=== PATIENT | female | born 1950 | race Caucasian/White ===

== ENCOUNTER 2022-06-05 19:04 | Inpatient (IN) | payer MEDICARE, OTHER ==
[~2022-06-05] VITALS: Ht 154.9 cm; Wt 78.9 kg
[2022-06-05] MEDS ORDERED: MAGN400O6 PO (19:39)
[2022-06-05] MEDS ORDERED: VOLTAREN TOP (19:39)
[2022-06-05] MEDS ORDERED: PIOG30TA10 PO (19:39)
[2022-06-05] MEDS ORDERED: NA P133E RC (19:39)
[2022-06-05] MEDS ORDERED: BISA10SU61 RC (19:39)
[2022-06-05] MEDS ORDERED: HYDR-894 PO (19:39)
[2022-06-05] MEDS ORDERED: BUSP15TA3 PO (19:39)
[2022-06-05] MEDS ORDERED: PANT20TA2 PO (19:39)
[2022-06-05] MEDS ORDERED: GABA-532 PO (19:39)
[2022-06-05] MEDS ORDERED: DULO20CA PO (19:39)
[2022-06-05] MEDS ORDERED: FURO-152 PO (19:39)
[2022-06-05] MEDS ORDERED: ASCO-375 PO (19:39)
[2022-06-05] MEDS ORDERED: QUET25TA PO (19:39)
[2022-06-05] MEDS ORDERED: GUAI100S34 PO (19:39)
[2022-06-05] MEDS ORDERED: LIDO30AD10 TD (19:39)
[2022-06-05] MEDS ORDERED: ACET-2154 PO (19:39)
[2022-06-05] MEDS ORDERED: IPRA3AMP23 IH (19:39)
[2022-06-05] MEDS ORDERED: HYDR-3972 PO (19:39)
[2022-06-05] MEDS ORDERED: MULT-594 PO (19:39)
[2022-06-05] MEDS ORDERED: AMLO10TA59 PO (19:39)
--- NOTE | 2022-06-05 20:15 | NUR ---
Dr. Lyman at bedside for MSE.
[2022-06-05 20:40] LABS: HEMATOCRIT 32.4 % (31.2-41.9); MEAN CORPUSCULAR HEMOGLOBIN 25.1 uug (24.7-32.8); MEAN CORPUSCULAR VOLUME 81.7 fL (75.5-95.3); PLATELET COUNT (AUTO) 317 K/uL (179-408)
[2022-06-05 21:24] LABS: CARBON DIOXIDE 26 mmol/L (21-32); CHLORIDE 107 mmol/L (98-107); CREATININE 1.7 mg/dL (0.6-1.3); GLUCOSE 175 mg/dL (74-106); POTASSIUM 4.8 mmol/L (3.5-5.1); UREA NITROGEN, BLOOD 24 mg/dL (7-18)
[2022-06-05 21:38] LABS: ALANINE AMINOTRANSFERASE < 6 U/L (14-59); ALKALINE PHOSPHATASE 98 U/L (50-136); ASPARTATE AMINOTRANSFERASE 14 U/L (15-37); BILIRUBIN,DIRECT 0.2 mg/dL (0.0-0.2); BILIRUBIN,TOTAL 0.4 mg/dL (0.2-1.0); TOTAL PROTEIN, SERUM 7.3 g/dL (6.4-8.2)
[2022-06-05 21:59] LABS: MAGNESIUM 1.9 mg/dL (1.8-2.4)
--- NOTE | 2022-06-05 23:45 | NUR ---
Accepted care of patient, resting in bed a/ox4, no s/s of any distress note at this time. Updated on plan of care, incontinet of large amount of urine, complete bed change done. Assisted into position of comfort. saline lock intact to right lower arm. obese abd, BLE edema, old scar noted to abd area and right knee. Scabbed areas noted to LLE. Placed on monitor at this time, will continue to monitor.
--- NOTE | 2022-06-05 23:55 | NUR ---
Report given to Shaila CARRION.
--- NOTE | 2022-06-06 00:13 | NUR ---
Admitting MD at bedside for exam.
--- NOTE | 2022-06-06 00:31 | NUR ---
#18fr boateng inserted as per MD Steven verbal order.
--- NOTE | 2022-06-06 01:17 | NUR ---
Patient resting, no voiced c/o pain or discomfort at this time, will continue to monitor.
[2022-06-06] MEDS ORDERED: GUAIFENESIN SUGAR FREE 100 MG/5 ML UDC PO PRN (02:15)
[2022-06-06] MEDS ORDERED: FLEET ENEMA 133 ML BOTTLE RC PRN (02:15)
[2022-06-06] MEDS ORDERED: hydrALAZINE HCL 25 MG TABLET PO PRN (02:15)
[2022-06-06] MEDS ORDERED: BISACODYL 10 MG SUPP.RECT RC PRN (02:15)
[2022-06-06] MEDS ORDERED: MAGNESIUM HYDROXIDE 30 ML LIQUID UDC PO PRN (02:15)
[2022-06-06] MEDS ORDERED: ACETAMINOPHEN 325 MG TABLET PO PRN (02:30)
[2022-06-06] MEDS ORDERED: FUROSEMIDE 40 MG/4 ML VIAL IV ONE (02:30)
[2022-06-06] MEDS ORDERED: BETHANECHOL CHLORIDE 25 MG TABLET PO PRN (02:45)
--- NOTE | 2022-06-06 03:14 | NUR ---
patient is sleeping at this time, no change in prior assessment. will continue to monitor.
[2022-06-06] MEDS ORDERED: FUROSEMIDE 40 MG/4 ML VIAL ONE (03:40)
--- NOTE | 2022-06-06 03:51 | NUR ---
Medicated as per order, requested and given another blanket.
--- NOTE | 2022-06-06 06:31 | NUR ---
2000cc emptied from boateng at this time.
[2022-06-06] MEDS ORDERED: PANTOPRAZOLE SODIUM 40 MG TABLET.DR PO ONE (06:34)
[2022-06-06] MEDS: PANTOPRAZOLE SODIUM 40 MG TABLET.DR PO SCH (06:35)
[2022-06-06 08:57] LABS: HEMATOCRIT 26.5 % (31.2-41.9); MEAN CORPUSCULAR HEMOGLOBIN 25.6 uug (24.7-32.8); MEAN CORPUSCULAR VOLUME 79.5 fL (75.5-95.3); PLATELET COUNT (AUTO) 278 K/uL (179-408)
[2022-06-06] MEDS ORDERED: LIDOCAINE 5% PATCH TD SCH (09:00)
[2022-06-06 09:01] LABS: CREATININE 1.5 mg/dL (0.6-1.3); MAGNESIUM 1.8 mg/dL (1.8-2.4); PHOSPHOROUS 4.1 mg/dL (2.5-4.9); POTASSIUM 4.1 mmol/L (3.5-5.1)
[2022-06-06] MEDS ORDERED: GABAPENTIN 300 MG CAPSULE ONE ×3 (09:25→19:17)
[2022-06-06] MEDS ORDERED: FUROSEMIDE 40 MG TABLET ONE (09:26)
[2022-06-06] MEDS ORDERED: busPIRone 5 MG TABLET ONE ×2 (09:26→19:36)
[2022-06-06] MEDS ORDERED: QUETIAPINE FUMARATE 25 MG TABLET ONE ×2 (09:27→19:17)
[2022-06-06] MEDS ORDERED: AMLODIPINE 5 MG TABLET ONE (09:27)
[2022-06-06] MEDS ORDERED: ASCORBIC ACID 500 MG TABLET ONE (09:27)
[2022-06-06] MEDS: GABAPENTIN 300 MG CAPSULE PO SCH ×3 (09:48→19:37)
[2022-06-06] MEDS: DULOXETINE 20 MG CAPSULE.DR PO SCH (09:48)
[2022-06-06] MEDS: busPIRone 5 MG TABLET PO SCH ×2 (09:48→19:37)
[2022-06-06] MEDS: FERROUS SULFATE 325 MG TABEC PO SCH (09:48)
[2022-06-06] MEDS: FUROSEMIDE 40 MG TABLET PO SCH (09:48)
[2022-06-06] MEDS: QUETIAPINE FUMARATE 25 MG TABLET PO SCH ×2 (09:49→19:37)
[2022-06-06] MEDS: ASCORBIC ACID 500 MG TABLET PO SCH (09:49)
[2022-06-06] MEDS: AMLODIPINE 10 MG TABLET PO SCH (09:49)
[2022-06-06] MEDS: MULTIVITAMINS,THERAPEUTIC TABLET PO SCH (09:49)
[2022-06-06] MEDS: LIDOCAINE 5% PATCH TD SCH (16:00)
[2022-06-07] MEDS ORDERED: LIDOCAINE 5% PATCH TD ONE (01:20)
[2022-06-07] MEDS ORDERED: HYDROCODONE/APAP 5-325MG TABLET ONE ×2 (01:21→16:08)
[2022-06-07] MEDS: HYDROCODONE/APAP 5-325MG TABLET PO PRN ×2 (01:24→16:10)
[2022-06-07] MEDS: LIDOCAINE 5% PATCH TD SCH (01:28)
--- NOTE | 2022-06-07 02:03 | NUR ---
Patient able to ambulate to the restroom with assistance
--- NOTE | 2022-06-07 02:04 | NUR ---
FC drained 2200ml
--- NOTE | 2022-06-07 03:31 | NUR ---
Per Vaughn CARRIONrn house supervisor, no TELE bed available at this time. Patient will stay in ER until bed is available. ER charting will be done.
[2022-06-07] MEDS ORDERED: PANTOPRAZOLE SODIUM 40 MG TABLET.DR PO ONE (07:01)
[2022-06-07] MEDS: PANTOPRAZOLE SODIUM 40 MG TABLET.DR PO SCH (07:03)
--- NOTE | 2022-06-07 07:07 | NUR ---
SBAR to Bonny CARRION
--- NOTE | 2022-06-07 08:10 | NUR ---
PATIENT IS SLEEPING, MOVING AROUND, VSS
[2022-06-07 09:24] LABS: CREATININE 1.5 mg/dL (0.6-1.3); MAGNESIUM 1.8 mg/dL (1.8-2.4); PHOSPHOROUS 4.1 mg/dL (2.5-4.9); POTASSIUM 4.1 mmol/L (3.5-5.1)
[2022-06-07] MEDS ORDERED: GABAPENTIN 300 MG CAPSULE ONE (09:24)
[2022-06-07] MEDS ORDERED: FUROSEMIDE 40 MG TABLET ONE (09:24)
[2022-06-07] MEDS ORDERED: QUETIAPINE FUMARATE 25 MG TABLET ONE (09:26)
[2022-06-07] MEDS: AMLODIPINE 10 MG TABLET PO SCH (09:27)
[2022-06-07] MEDS: GABAPENTIN 300 MG CAPSULE PO SCH ×3 (09:27→17:00)
[2022-06-07] MEDS: FERROUS SULFATE 325 MG TABEC PO SCH (09:27)
[2022-06-07] MEDS: FUROSEMIDE 40 MG TABLET PO SCH (09:27)
[2022-06-07] MEDS: DULOXETINE 20 MG CAPSULE.DR PO SCH (09:27)
[2022-06-07] MEDS: busPIRone 5 MG TABLET PO SCH ×2 (09:27→17:00)
[2022-06-07] MEDS: QUETIAPINE FUMARATE 25 MG TABLET PO SCH ×2 (09:28→17:00)
[2022-06-07] MEDS: MULTIVITAMINS,THERAPEUTIC TABLET PO SCH (09:28)
[2022-06-07] MEDS: ASCORBIC ACID 500 MG TABLET PO SCH (09:28)
--- NOTE | 2022-06-07 09:30 | NUR ---
PATIENT IS SITTING UP EATING C REAM OF WHEAT AND DRINKING GRAPE JUICE AND WATER. AWAITING INPATIENT BED
[2022-06-07 10:11] LABS: HEMATOCRIT 31.5 % (31.2-41.9); MEAN CORPUSCULAR HEMOGLOBIN 25.8 uug (24.7-32.8); MEAN CORPUSCULAR VOLUME 80.1 fL (75.5-95.3); PLATELET COUNT (AUTO) 300 K/uL (179-408)
[2022-06-07] MEDS ORDERED: LIDO30AD10 TD (15:46)
[2022-06-07] MEDS ORDERED: PANT40TA49 PO (15:46)
[2022-06-07] MEDS ORDERED: FERR325T28 PO (15:46)
[2022-06-07] MEDS ORDERED: BETH25TA2 PO (15:46)
[2022-06-07] MEDS ORDERED: hydrALAZINE HCL 25 MG TABLET ONE (16:08)
--- NOTE | 2022-06-07 16:11 | NUR ---
patient is awake and alert. BP high, PRN HTN med given as ordered. Patient states she has back pain "from this awful gurney". I helped her reposition and gave her [place] as ordered. She is now sitting up and eating macaroni and beef
--- NOTE | 2022-06-07 17:15 | NUR ---
BP WNL NOW. STATES PAIN HAS DIMINISHED . FLANNERY EMPIED THROUGHOUT SHIFT, URINE IS CLEAR AND LIGHT YELLOW
--- NOTE | 2022-06-07 19:26 | NUR ---
HAND OFF REPORT GIVEN TO LUCIO CARRION
[2022-06-08] VITALS: BP 148/56
--- NOTE | 2022-06-08 | NUR ---
Admitted a 72 years old female with Dx of Chronic CHF, severe SOB, UTI, ALOC 2ndary metabolic Encephalopathy. Patient AAOx4. In no apparent distress. Able to answer questions and follow directions. Denies any pain or SOB at this time. BLE with 4+ pitting edema. Routine admission care done. Plan of care initiated. Safety measure initiated and call light within reached.
--- NOTE | 2022-06-08 00:19 | NUR ---
transferred to RM [id number]
--- NOTE | 2022-06-08 04:52 | NUR ---
Patient AAOx4. In no acute distress. Robitussin plain 5ml po given for cough and effective. Cough non-productive and occasional only. Denies any pain or SOB. IV site on right FA intact and patent. Needs attended to and met. Safety measure maintained and call light within reached.
[2022-06-08 04:59] VITALS: BP 150/60
[2022-06-08] MEDS: HYDROCODONE/APAP 5-325MG TABLET PO PRN (05:24)
[2022-06-08] MEDS: PANTOPRAZOLE SODIUM 40 MG TABLET.DR PO SCH (06:01)
[2022-06-08 07:26] LABS: HEMATOCRIT 28.8 % (31.2-41.9); MEAN CORPUSCULAR HEMOGLOBIN 25.9 uug (24.7-32.8); MEAN CORPUSCULAR VOLUME 79.2 fL (75.5-95.3); PLATELET COUNT (AUTO) 285 K/uL (179-408)
[2022-06-08 07:56] LABS: CREATININE 1.6 mg/dL (0.6-1.3); MAGNESIUM 1.7 mg/dL (1.8-2.4); PHOSPHOROUS 3.9 mg/dL (2.5-4.9); POTASSIUM 3.9 mmol/L (3.5-5.1)
[2022-06-08 08:00] VITALS: BP 156/68
--- NOTE | 2022-06-08 08:00 | NUR ---
Awake, alert, oriented x 4. Denies pain. Not in distress.
[2022-06-08] MEDS ORDERED: FUROSEMIDE 40 MG/4 ML VIAL IV SCH (09:00)
[2022-06-08 09:16] VITALS: BP 156/68
[2022-06-08] MEDS: FERROUS SULFATE 325 MG TABEC PO SCH (09:16)
[2022-06-08] MEDS: QUETIAPINE FUMARATE 25 MG TABLET PO SCH (09:16)
[2022-06-08] MEDS: AMLODIPINE 10 MG TABLET PO SCH (09:16)
[2022-06-08] MEDS: GABAPENTIN 300 MG CAPSULE PO SCH (09:16)
[2022-06-08] MEDS: ASCORBIC ACID 500 MG TABLET PO SCH (09:17)
[2022-06-08] MEDS: LIDOCAINE 5% PATCH TD SCH (09:24)
[2022-06-08] MEDS: MULTIVITAMINS,THERAPEUTIC TABLET PO SCH (09:24)
[2022-06-08] MEDS: busPIRone 5 MG TABLET PO SCH (09:24)
--- NOTE | 2022-06-08 09:30 | NUR ---
PT eval done. Max assist x 2, able to stand only
[2022-06-08] MEDS: DULOXETINE 20 MG CAPSULE.DR PO SCH (09:32)
[2022-06-08] MEDS ORDERED: MAGNESIUM OXIDE 400 MG TABLET PO ONE (10:00)
--- NOTE | 2022-06-08 11:44 | NUR ---
WOUND CARE CONSULT: PT SEEN FOR RT ANTERIOR HIP WOUND WITH SURROUNDING SCARRING, PRESENT ON ADMISSION. RECOMMENDATIONS MADE FOR WOUND CARE AND SKIN PROTECTION. DISCUSSED WITH NURSING STAFF. MD IN AGREEMENT WITH PLAN OF CARE.
[2022-06-08] MEDS ORDERED: FUROSEMIDE 40 MG/4 ML VIAL IV ONE (11:45)
--- NOTE | 2022-06-08 12:34 | NUR ---
With discharge order to SNF, arranged at [facility]. Report given to Lien. Saline lock removed. Discharged per gurney/ambulance in fair condition, not in distress, afebrile.
== END 2022-06-08 13:00 | DRG 291 ==
LOC: ER 19:04 → TRANSITION 22:00 → MEDSURG3 06-07 20:52 → MED 06-07 22:15
PROVIDERS: ADMIT Internal Medicine; ATTEND Internal Medicine
DX: I13.0 Hypertensive heart and chronic kidney disease with heart failure and stage 1 through stage 4 chronic kidney disease, or unspecified chronic kidney disease (principal); I50.33 Acute on chronic diastolic (congestive) heart failure; N17.0 Acute kidney failure with tubular necrosis; N39.0 Urinary tract infection, site not specified; D50.9 Iron deficiency anemia, unspecified; Z79.4 Long term (current) use of insulin; Z87.440 Personal history of urinary (tract) infections; Z95.0 Presence of cardiac pacemaker; Z20.822 Contact with and (suspected) exposure to COVID-19; F41.9 Anxiety disorder, unspecified; F32.A Depression, unspecified; E11.22 Type 2 diabetes mellitus with diabetic chronic kidney disease; E87.5 Hyperkalemia; Z79.82 Long term (current) use of aspirin; Z79.84 Long term (current) use of oral hypoglycemic drugs; Z90.49 Acquired absence of other specified parts of digestive tract; G89.29 Other chronic pain; N18.30 Chronic kidney disease, stage 3 unspecified
CPT/HCPCS: 36415; 71045; 83550; 83735; 84100; 84484; 85025; 87040; 93005; 93307; A4663; A6209; G0378; J1940

== ENCOUNTER 2023-03-03 20:34 | Inpatient (IN) | payer MEDICARE, OTHER ==
[~2023-03-03] VITALS: Ht 152.4 cm; Wt 87.5 kg
[~2023-03-03 20:34] MED LIST: ACET-2154 PO; AMLO10TA59 PO; ASCO-375 PO; BETH25TA2 PO; BISA10SU61 RC; BUSP15TA3 PO; DULO20CA PO; FERR325T28 PO; FURO-152 PO; GABA-532 PO; GUAI100S34 PO; HYDR-3972 PO; HYDR-894 PO; IPRA3AMP23 IH; LIDO30AD10 TD; MAGN400O6 PO; MULT-594 PO; NA P133E RC; PANT40TA49 PO; PIOG30TA10 PO; QUET25TA PO; VOLTAREN TOP
[2023-03-03 21:29] LABS: BASOPHILS % (AUTO) 0.8 % (0.0-2.0); EOSINOPHILS # (AUTO) 0.2 K/uL (0.0-0.7); EOSINOPHILS % (AUTO) 3.8 % (0.0-7.0); HEMATOCRIT 34.9 % (31.2-41.9); HEMOGLOBIN 11.3 g/dL (10.9-14.3); LYMPHOCYTES # (AUTO) 1.8 K/uL (0.8-4.8); LYMPHOCYTES % (AUTO) 34.5 % (20.5-51.5); MEAN CORPUSCULAR HEMOGLOBIN 27.8 uug (24.7-32.8); MEAN CORPUSCULAR HGB CONC 32 g/dL (32.3-35.6); MEAN CORPUSCULAR VOLUME 85.7 fL (75.5-95.3); MONOCYTES # (AUTO) 0.5 K/uL (0.1-1.30); MONOCYTES % (AUTO) 10.1 % (0.0-11.0); NEUTROPHILS # (AUTO) 2.7 K/uL (1.8-8.9); NEUTROPHILS % (AUTO) 50.8 % (38.5-71.5); PLATELET COUNT (AUTO) 179 K/uL (179-408); RED BLOOD CELL COUNT(AUTO) 4.07 MIL/uL (3.63-4.92); RED CELL DISTRIBUTION WIDTH 19.4 % (12.3-17.7); WHITE BLOOD COUNT (AUTO) 5.3 K/uL (3.8-11.8)
[2023-03-03 21:38] LABS: DIFFERENTIAL COMMENT 1
[2023-03-03 21:45] LABS: CALCIUM 8.6 mg/dL (8.5-10.1); CARBON DIOXIDE 26 mmol/L (21-32); CHLORIDE 106 mmol/L (98-107); GLUCOSE 194 mg/dL (74-106); POTASSIUM 4.7 mmol/L (3.5-5.1); SODIUM SERUM 135 mmol/L (136-145); UREA NITROGEN, BLOOD 44 mg/dL (7-18)
[2023-03-03] MEDS ORDERED: HYDROCODONE/APAP 5-325MG TABLET PO ONE (21:45)
[2023-03-03 21:48] LABS: ETHANOL < 3 MG/DL (0-10)
[2023-03-03 21:58] LABS: ACETAMINOPHEN < 2.0 ug/mL (10-30); ALANINE AMINOTRANSFERASE 12 U/L (14-59); ALBUMIN 2.9 g/dL (3.4-5.0); ALKALINE PHOSPHATASE 111 U/L (50-136); ASPARTATE AMINOTRANSFERASE 17 U/L (15-37); BILIRUBIN,DIRECT 0.1 mg/dL (0.0-0.2); BILIRUBIN,TOTAL 0.4 mg/dL (0.2-1.0); TOTAL PROTEIN, SERUM 6.3 g/dL (6.4-8.2)
[2023-03-03] MEDS ORDERED: HYDROCODONE/APAP 5-325MG TABLET ONE (22:00)
[2023-03-03] MEDS ORDERED: CEFTRIAXONE 1 G in IV DEXTROSE 5% 50 ML IV ONE (22:15)
[2023-03-03] MEDS ORDERED: IV NS 1000 ML 1,000 ML IV ONE (22:15)
[2023-03-03] MEDS ORDERED: OLANZAPINE 10 MG VIAL IM ONE ×2 (22:45→22:47)
[2023-03-03 23:29] LABS: *BILIRUBIN,URIN NEGATIVE (NEGATIVE); *BLOOD, URINE 1+ (NEGATIVE); *CLARITY,URINE SLIGHTLY CLOUDY (CLEAR); *COLOR,URINE YELLOW (YELLOW); *KETONES,URINE NEGATIVE (NEGATIVE); *PROTEIN,URINE 2+ (NEGATIVE); *UROBILINOGEN,URINE 0.2 E.U./dl (NORMAL); LEUKOCYTE ESTERASE ,URINE 3+ (NEGATIVE); NITRITE, URINE POSITIVE (NEGATIVE); PH,URINE 6.5 (5.0-8.0); UGLUCOSE NEGATIVE (NEGATIVE)
[2023-03-03 23:40] LABS: *AMPHETAMINE, URINE NEGATIVE (NEGATIVE); *BARBITURATE, URINE NEGATIVE (NEGATIVE); *BENZODIAZEPINE, URINE NEGATIVE (NEGATIVE); *CANNABINOID, URINE NEGATIVE (NEGATIVE); *COCCAINE, URINE NEGATIVE (NEGATIVE); *OPIATE, URINE POSITIVE (NEGATIVE); *PHENCYCLIDINE SCREEN,URINE NEGATIVE (NEGATIVE); FENTANYL, URINE NEGATIVE (NEGATIVE)
[2023-03-04] MEDS ORDERED: CEFTRIAXONE /D5W 50ML IVPB **ER PYXIS IV ONE (00:05)
[2023-03-04 00:14] LABS: WBC,URINE 50-80 /HPF (0-3)
[2023-03-04 00:15] LABS: BACTERIA,URINE MANY /HPF (NONE SEEN); SQUAMOUS EPITHELIAL CELL,UR MANY /HPF (NONE SEEN)
[2023-03-04] MEDS ORDERED: CHOL100045 PO (00:28)
[2023-03-04] MEDS ORDERED: AMLO2.5T4 PO (00:28)
[2023-03-04] MEDS ORDERED: CLOT15CR27 TP (00:28)
[2023-03-04] MEDS ORDERED: DOCU250C14 PO (00:28)
[2023-03-04] MEDS ORDERED: norco PO (00:28)
[2023-03-04] MEDS ORDERED: aspart insulin (00:28)
[2023-03-04] MEDS ORDERED: ARIP2TAB3 PO (00:28)
[2023-03-04] MEDS ORDERED: FURO-151 PO (00:28)
[2023-03-04] MEDS ORDERED: SENN8.6T19 PO (00:28)
[2023-03-04] MEDS ORDERED: DULO30CA2 PO (00:28)
[2023-03-04] MEDS ORDERED: ASCO500C18 PO (00:28)
[2023-03-04] MEDS ORDERED: NITR0.4T SL (00:28)
[2023-03-04] MEDS ORDERED: ONDA-104 PO (00:28)
[2023-03-04] MEDS ORDERED: PANT40TA49 PO (00:28)
[2023-03-04] MEDS ORDERED: LORA0.5T48 PO (00:28)
[2023-03-04] MEDS ORDERED: DICL100G31 TP (00:28)
[2023-03-04] MEDS ORDERED: LINA5TAB PO (00:28)
[2023-03-04] MEDS ORDERED: ZINC1CAP2 PO (00:28)
[2023-03-04] MEDS ORDERED: ATOR40TA PO (00:28)
[2023-03-04] MEDS ORDERED: BUSP5TAB3 PO (00:28)
[2023-03-04] MEDS ORDERED: HYDR-501 PO (00:28)
[2023-03-04] MEDS ORDERED: ASPI81TA31 PO (00:28)
[2023-03-04] MEDS ORDERED: MELA3TAB41 PO (00:28)
[2023-03-04] MEDS ORDERED: VIT1TABL46 PO (00:28)
[2023-03-04] MEDS ORDERED: FERR-68 PO (00:28)
[2023-03-04] MEDS ORDERED: ARIPIPRAZOLE 2 MG TABLET ONE ×2 (08:50→22:50)
[2023-03-04] MEDS ORDERED: GABAPENTIN 300 MG CAPSULE ONE ×3 (08:50→18:38)
[2023-03-04] MEDS ORDERED: busPIRone 5 MG TABLET ONE (08:54)
[2023-03-04] MEDS ORDERED: ASPIRIN 81 MG TAB.CHEW ONE (08:59)
[2023-03-04] MEDS: busPIRone 5 MG TABLET PO SCH ×2 (09:01→13:00)
[2023-03-04] MEDS: ASPIRIN 81 MG TAB.CHEW PO SCH (09:01)
[2023-03-04] MEDS: GABAPENTIN 300 MG CAPSULE PO SCH ×2 (09:01→13:00)
[2023-03-04] MEDS: DULOXETINE 30 MG CAPSULE.DR PO SCH (09:01)
[2023-03-04] MEDS ORDERED: DEXTROSE 50% 50 ML DISP.SYRIN IV PRN (09:30)
[2023-03-04] MEDS ORDERED: CEFTRIAXONE 1 G VIAL IV SCH (09:30)
[2023-03-04] MEDS: BLOOD SUGAR DIAGNOSTIC 1 EACH STRIP VI SCH ×4 (09:33→21:00)
[2023-03-04] MEDS ORDERED: MORPHINE SULFATE 2 MG/1 ML DISP.SYRIN IVP PRN (10:30)
[2023-03-04] MEDS ORDERED: ACETAMINOPHEN 325 MG TABLET PO PRN (10:30)
[2023-03-04] MEDS ORDERED: ONDANSETRON 4 MG/2 ML VIAL IV PRN (10:30)
[2023-03-04] MEDS ORDERED: hydrALAZINE HCL 20 MG/1 ML VIAL IV PRN (10:30)
[2023-03-04] MEDS ORDERED: INSULIN REGULAR, HUMAN 300 UNIT/3 ML VIAL ONE ×2 (12:21→23:29)
[2023-03-04] MEDS: INSULIN REGULAR, HUMAN 300 UNIT/3 ML VIAL SQ PRN ×2 (12:24→23:32)
[2023-03-04] MEDS ORDERED: HYDROCODONE/APAP 5-325MG TABLET ONE (20:28)
[2023-03-04] MEDS: HYDROCODONE/APAP 5-325MG TABLET PO PRN (20:32)
[2023-03-04] MEDS: ATORVASTATIN 40 MG TABLET PO SCH (21:00)
[2023-03-04] MEDS: ARIPIPRAZOLE 2 MG TABLET PO SCH (21:00)
[2023-03-04] MEDS: AMLODIPINE 2.5 MG TABLET PO SCH (21:00)
[2023-03-04] MEDS ORDERED: LORAZEPAM 2 MG/1 ML VIAL ONE (21:43)
[2023-03-04] MEDS ORDERED: LORAZEPAM 2 MG/1 ML VIAL IV PRN (21:45)
[2023-03-04] MEDS ORDERED: AMLODIPINE 2.5 MG TABLET ONE (22:49)
[2023-03-04] MEDS ORDERED: ATORVASTATIN 20 MG TABLET ONE (22:50)
[2023-03-05] MEDS ORDERED: CEFTRIAXONE 1 G VIAL ONE (00:35)
[2023-03-05] MEDS ORDERED: CEFEPIME HCL 1 G VIAL ONE (02:42)
[2023-03-05] MEDS ORDERED: LORAZEPAM 0.5 MG TABLET ONE (04:34)
[2023-03-05] MEDS: LORAZEPAM 0.5 MG TABLET PO PRN ×2 (04:34→21:23)
[2023-03-05 06:12] LABS: BASOPHILS % (AUTO) 0.6 % (0.0-2.0); EOSINOPHILS # (AUTO) 0.2 K/uL (0.0-0.7); EOSINOPHILS % (AUTO) 3.7 % (0.0-7.0); HEMATOCRIT 32.2 % (31.2-41.9); HEMOGLOBIN 10.5 g/dL (10.9-14.3); LYMPHOCYTES # (AUTO) 2.1 K/uL (0.8-4.8); LYMPHOCYTES % (AUTO) 34.4 % (20.5-51.5); MEAN CORPUSCULAR HEMOGLOBIN 27.8 uug (24.7-32.8); MEAN CORPUSCULAR HGB CONC 33 g/dL (32.3-35.6); MEAN CORPUSCULAR VOLUME 85.5 fL (75.5-95.3); MONOCYTES # (AUTO) 0.6 K/uL (0.1-1.30); MONOCYTES % (AUTO) 9.2 % (0.0-11.0); NEUTROPHILS # (AUTO) 3.2 K/uL (1.8-8.9); NEUTROPHILS % (AUTO) 52.1 % (38.5-71.5); PLATELET COUNT (AUTO) 171 K/uL (179-408); RED BLOOD CELL COUNT(AUTO) 3.76 MIL/uL (3.63-4.92); RED CELL DISTRIBUTION WIDTH 19.5 % (12.3-17.7); WHITE BLOOD COUNT (AUTO) 6.1 K/uL (3.8-11.8)
[2023-03-05 06:13] LABS: DIFFERENTIAL COMMENT 1
[2023-03-05 06:42] LABS: ALBUMIN 2.5 g/dL (3.4-5.0); BILIRUBIN,TOTAL 0.4 mg/dL (0.2-1.0); CALCIUM 8.2 mg/dL (8.5-10.1); CREATININE 1.8 mg/dL (0.6-1.3); PHOSPHOROUS 3.7 mg/dL (2.5-4.9); POTASSIUM 4.9 mmol/L (3.5-5.1); TOTAL PROTEIN, SERUM 5.8 g/dL (6.4-8.2)
[2023-03-05] MEDS: BLOOD SUGAR DIAGNOSTIC 1 EACH STRIP VI SCH ×4 (06:51→21:36)
[2023-03-05 10:16] VITALS: BP 148/44; TEMP 98.4; O2SAT 97
[2023-03-05] MEDS: ASPIRIN 81 MG TAB.CHEW PO SCH (11:22)
[2023-03-05] MEDS: INSULIN REGULAR, HUMAN 300 UNIT/3 ML VIAL SQ PRN ×2 (11:28→21:40)
[2023-03-05] MEDS: HYDROCODONE/APAP 5-325MG TABLET PO PRN (15:46)
[2023-03-05 17:03] VITALS: BP 157/51; TEMP 98; O2SAT 96
[2023-03-05] MEDS: ATORVASTATIN 40 MG TABLET PO SCH (21:21)
[2023-03-05] MEDS: ARIPIPRAZOLE 2 MG TABLET PO SCH (21:21)
[2023-03-05] MEDS: AMLODIPINE 2.5 MG TABLET PO SCH (21:28)
[2023-03-05 22:15] VITALS: BP 157/52; TEMP 97.3; O2SAT 97
[2023-03-05] MEDS: CEFTRIAXONE 1 G in IV DEXTROSE 5% 50 ML IV SCH ×3 (23:36)
[2023-03-06] MEDS: HYDROCODONE/APAP 5-325MG TABLET PO PRN ×3 (03:51→17:03)
[2023-03-06 04:10] VITALS: BP 128/59; TEMP 98.5
[2023-03-06] MEDS: BLOOD SUGAR DIAGNOSTIC 1 EACH STRIP VI SCH ×4 (06:36→21:14)
[2023-03-06 08:00] VITALS: BP 119/61; TEMP 98.1; O2SAT 95
[2023-03-06] MEDS: ASPIRIN 81 MG TAB.CHEW PO SCH (08:23)
[2023-03-06] MEDS: DULOXETINE 30 MG CAPSULE.DR PO SCH ×2 (08:24→16:16)
[2023-03-06] MEDS: GABAPENTIN 300 MG CAPSULE PO SCH ×3 (08:24→16:18)
[2023-03-06] MEDS: busPIRone 5 MG TABLET PO SCH ×3 (08:24→16:16)
[2023-03-06] MEDS ORDERED: SULF1TAB48 PO (10:19)
[2023-03-06] MEDS: MUPIROCIN 2% OINT 22 GM TUBE NS SCH ×2 (11:18→21:11)
[2023-03-06] MEDS: INSULIN REGULAR, HUMAN 300 UNIT/3 ML VIAL SQ PRN ×2 (11:35→16:47)
[2023-03-06] MEDS ORDERED: ENOXAPARIN SODIUM 40 MG/0.4 ML DISP.SYRIN SQ SCH (15:00)
[2023-03-06] MEDS ORDERED: REMEDY ESSENTIAL ZINC PASTE 113 GM TP PRN (15:00)
[2023-03-06] MEDS ORDERED: ONDANSETRON 4 MG/2 ML VIAL IV PRN (15:00)
[2023-03-06] MEDS ORDERED: IV NS 1000 ML 1,000 ML IV PRN (15:00)
[2023-03-06] MEDS ORDERED: MAGNESIUM HYDROXIDE 30 ML LIQUID UDC PO PRN (15:00)
[2023-03-06] MEDS ORDERED: ACETAMINOPHEN 325 MG TABLET PO PRN (15:00)
[2023-03-06 16:00] VITALS: BP 137/71; TEMP 97.8; O2SAT 97
[2023-03-06] MEDS: SULFAMETH/TRIMETH 800/160 MG TABLET PO SCH (16:16)
[2023-03-06] MEDS: INSULIN REGULAR, HUMAN 300 UNIT/3 ML VIAL SQ SCH (16:30)
[2023-03-06] MEDS ORDERED: INSULIN ASPART 300 UNIT/3 ML CARTRIDGE SQ SCH (16:30)
[2023-03-06] MEDS ORDERED: ENOXAPARIN SODIUM 30 MG/0.3 ML DISP.SYRIN SUBCUT SCH (21:00)
[2023-03-06] MEDS ORDERED: SULFAMETH/TRIMETH 800/160 MG TABLET PO SCH (21:00)
[2023-03-06] MEDS: ARIPIPRAZOLE 2 MG TABLET PO SCH (21:11)
[2023-03-06] MEDS: ATORVASTATIN 40 MG TABLET PO SCH (21:11)
[2023-03-06 21:12] VITALS: BP 135/59; TEMP 98.2; O2SAT 98
[2023-03-06] MEDS: AMLODIPINE 2.5 MG TABLET PO SCH (21:12)
[2023-03-06] MEDS: LORAZEPAM 0.5 MG TABLET PO PRN (23:42)
[2023-03-07] MEDS: HYDROCODONE/APAP 5-325MG TABLET PO PRN ×2 (00:17→17:00)
[2023-03-07 04:50] VITALS: BP 150/74; TEMP 98.2; O2SAT 99
[2023-03-07 06:20] LABS: BASOPHILS % (AUTO) 0.7 % (0.0-2.0); EOSINOPHILS # (AUTO) 0.2 K/uL (0.0-0.7); EOSINOPHILS % (AUTO) 4.3 % (0.0-7.0); HEMATOCRIT 32.5 % (31.2-41.9); HEMOGLOBIN 10.9 g/dL (10.9-14.3); LYMPHOCYTES # (AUTO) 1.3 K/uL (0.8-4.8); LYMPHOCYTES % (AUTO) 30.5 % (20.5-51.5); MEAN CORPUSCULAR HEMOGLOBIN 28.3 uug (24.7-32.8); MEAN CORPUSCULAR HGB CONC 34 g/dL (32.3-35.6); MEAN CORPUSCULAR VOLUME 84.4 fL (75.5-95.3); MONOCYTES # (AUTO) 0.5 K/uL (0.1-1.30); MONOCYTES % (AUTO) 11.3 % (0.0-11.0); NEUTROPHILS # (AUTO) 2.2 K/uL (1.8-8.9); NEUTROPHILS % (AUTO) 53.2 % (38.5-71.5); PLATELET COUNT (AUTO) 159 K/uL (179-408); RED BLOOD CELL COUNT(AUTO) 3.84 MIL/uL (3.63-4.92); WHITE BLOOD COUNT (AUTO) 4.2 K/uL (3.8-11.8)
[2023-03-07] MEDS: BLOOD SUGAR DIAGNOSTIC 1 EACH STRIP VI SCH (06:36)
[2023-03-07 06:53] LABS: DIFFERENTIAL COMMENT 1
[2023-03-07] MEDS ORDERED: PANTOPRAZOLE SODIUM 40 MG TABLET.DR PO SCH (07:00)
[2023-03-07 07:03] LABS: ALBUMIN 2.6 g/dL (3.4-5.0); BILIRUBIN,TOTAL 0.4 mg/dL (0.2-1.0); CALCIUM 8.3 mg/dL (8.5-10.1); CREATININE 1.8 mg/dL (0.6-1.3); MAGNESIUM 1.9 mg/dL (1.8-2.4); PHOSPHOROUS 3.9 mg/dL (2.5-4.9); POTASSIUM 4.3 mmol/L (3.5-5.1); TOTAL PROTEIN, SERUM 6.1 g/dL (6.4-8.2)
[2023-03-07] MEDS: INSULIN REGULAR, HUMAN 300 UNIT/3 ML VIAL SQ SCH (08:28)
[2023-03-07] MEDS: ASPIRIN 81 MG TAB.CHEW PO SCH (08:29)
[2023-03-07] MEDS: GABAPENTIN 300 MG CAPSULE PO SCH ×3 (08:30→16:52)
[2023-03-07] MEDS: busPIRone 5 MG TABLET PO SCH ×3 (08:30→16:52)
[2023-03-07] MEDS: DULOXETINE 30 MG CAPSULE.DR PO SCH ×2 (08:30→16:52)
[2023-03-07] MEDS: MUPIROCIN 2% OINT 22 GM TUBE NS SCH (08:31)
[2023-03-07 09:00] VITALS: BP 152/65; TEMP 98.1; O2SAT 99
[2023-03-07] MEDS: SULFAMETH/TRIMETH 800/160 MG TABLET PO SCH (16:52)
[2023-03-07] MEDS ORDERED: ARIPIPRAZOLE 2 MG TABLET PO SCH (21:00)
[2023-03-07] MEDS ORDERED: ARIPIPRAZOLE 5 MG TABLET PO SCH (21:00)
== END 2023-03-07 18:00 | DRG 871 ==
LOC: ER 20:36 → TRANSITION 03-04 02:14 → MEDSURG3 03-05 09:40
PROVIDERS: ADMIT Internal Medicine; ATTEND Internal Medicine
PROC: 05H533Z Insertion of Infusion Device into Right Subclavian Vein, Percutaneous Approach (ICD-10-PCS; principal; 2023-03-06)
PROC: B546ZZA Ultrasonography of Right Subclavian Vein, Guidance (ICD-10-PCS; 2023-03-06)
DX: A41.9 Sepsis, unspecified organism (principal); E43 Unspecified severe protein-calorie malnutrition; N17.0 Acute kidney failure with tubular necrosis; N39.0 Urinary tract infection, site not specified; D68.69 Other thrombophilia; B96.20 Unspecified Escherichia coli [E. coli] as the cause of diseases classified elsewhere; D64.9 Anemia, unspecified; D69.6 Thrombocytopenia, unspecified; E11.22 Type 2 diabetes mellitus with diabetic chronic kidney disease; E78.5 Hyperlipidemia, unspecified; G89.4 Chronic pain syndrome; N18.9 Chronic kidney disease, unspecified; I12.9 Hypertensive chronic kidney disease with stage 1 through stage 4 chronic kidney disease, or unspecified chronic kidney disease; Z79.84 Long term (current) use of oral hypoglycemic drugs; Z87.440 Personal history of urinary (tract) infections; Z95.0 Presence of cardiac pacemaker; Z20.822 Contact with and (suspected) exposure to COVID-19; K21.9 Gastro-esophageal reflux disease without esophagitis; F41.9 Anxiety disorder, unspecified; F20.9 Schizophrenia, unspecified; F31.9 Bipolar disorder, unspecified; F60.3 Borderline personality disorder; M19.90 Unspecified osteoarthritis, unspecified site; E66.9 Obesity, unspecified; Z68.37 Body mass index [BMI] 37.0-37.9, adult
CPT/HCPCS: 36415; 70450; 83605; 83735; 84100; 85025; 87040; A4663; G0378; G0480; J0692; J0696; J1650; J1815; J2060; J2358; J7040

== ENCOUNTER 2023-03-19 19:44 | Inpatient (IN) | payer MEDICARE, OTHER ==
[~2023-03-19] VITALS: Ht 154.9 cm; Wt 97.1 kg
[~2023-03-19 19:44] MED LIST changes: -AMLO10TA59 PO; +AMLO2.5T4 PO; +ARIP2TAB3 PO; -ASCO-375 PO; +ASCO500C18 PO; +ASPI81TA31 PO; -BETH25TA2 PO; -BUSP15TA3 PO; +BUSP5TAB3 PO; +CHOL100045 PO; +CLOT15CR27 TP; +DICL100G31 TP; +DOCU250C14 PO; -DULO20CA PO; +DULO30CA2 PO; -FERR325T28 PO; +FURO-151 PO; -FURO-152 PO; -GUAI100S34 PO; -HYDR-3972 PO; +HYDR-501 PO; -HYDR-894 PO; -IPRA3AMP23 IH; -LIDO30AD10 TD; +LINA5TAB PO; -MAGN400O6 PO; -MULT-594 PO; -NA P133E RC; -PIOG30TA10 PO; -QUET25TA PO; +SENN8.6T19 PO; +VIT1TABL46 PO; -VOLTAREN TOP; +ZINC1CAP2 PO
[2023-03-19] MEDS ORDERED: DOXY100C5 PO (20:05)
[2023-03-19 20:12] LABS: BASOPHILS % (AUTO) 0.5 % (0.0-2.0); EOSINOPHILS # (AUTO) 0.3 K/uL (0.0-0.7); EOSINOPHILS % (AUTO) 3.6 % (0.0-7.0); HEMATOCRIT 37.3 % (31.2-41.9); HEMOGLOBIN 12.2 g/dL (10.9-14.3); LYMPHOCYTES # (AUTO) 2.2 K/uL (0.8-4.8); LYMPHOCYTES % (AUTO) 30.9 % (20.5-51.5); MEAN CORPUSCULAR HEMOGLOBIN 28.1 uug (24.7-32.8); MEAN CORPUSCULAR HGB CONC 33 g/dL (32.3-35.6); MEAN CORPUSCULAR VOLUME 86.1 fL (75.5-95.3); MONOCYTES # (AUTO) 0.8 K/uL (0.1-1.30); MONOCYTES % (AUTO) 11.3 % (0.0-11.0); NEUTROPHILS # (AUTO) 3.8 K/uL (1.8-8.9); NEUTROPHILS % (AUTO) 53.7 % (38.5-71.5); PLATELET COUNT (AUTO) 239 K/uL (179-408); RED BLOOD CELL COUNT(AUTO) 4.33 MIL/uL (3.63-4.92); RED CELL DISTRIBUTION WIDTH 18.1 % (12.3-17.7)
[2023-03-19 20:13] LABS: DIFFERENTIAL COMMENT 1
[2023-03-19 20:27] LABS: ALANINE AMINOTRANSFERASE 12 U/L (14-59); ALBUMIN 3.1 g/dL (3.4-5.0); ALKALINE PHOSPHATASE 113 U/L (50-136); ASPARTATE AMINOTRANSFERASE 13 U/L (15-37); BILIRUBIN,DIRECT 0.1 mg/dL (0.0-0.2); BILIRUBIN,TOTAL 0.4 mg/dL (0.2-1.0); CALCIUM 8.9 mg/dL (8.5-10.1); CARBON DIOXIDE 29 mmol/L (21-32); CHLORIDE 104 mmol/L (98-107); GLUCOSE 171 mg/dL (74-106); POTASSIUM 4.4 mmol/L (3.5-5.1); SODIUM SERUM 140 mmol/L (136-145); UREA NITROGEN, BLOOD 42 mg/dL (7-18)
[2023-03-19 20:29] LABS: ACETAMINOPHEN < 2.0 ug/mL (10-30)
[2023-03-19 20:31] LABS: ETHANOL < 3 MG/DL (0-10)
[2023-03-20] MEDS ORDERED: ACETAMINOPHEN 325 MG TABLET-SA PATIENTS-PAIN ONLY PO PRN (00:30)
[2023-03-20] MEDS ORDERED: BISACODYL 10 MG SUPP.RECT RC PRN (00:30)
[2023-03-20] MEDS ORDERED: DEXTROSE 50% 50 ML DISP.SYRIN IV PRN (00:30)
[2023-03-20] MEDS ORDERED: MAGNESIUM HYDROXIDE 30 ML LIQUID UDC PO PRN (01:30)
[2023-03-20] MEDS ORDERED: BLOOD SUGAR DIAGNOSTIC 1 EACH STRIP VI ONE (01:30)
[2023-03-20 02:00] VITALS: BP 123/93; TEMP 96.9; O2SAT 100
[2023-03-20] MEDS: TEMAZEPAM 7.5 MG CAPSULE PO PRN (02:51)
[2023-03-20] MEDS: ACETAMINOPHEN 325 MG TABLET PO PRN ×2 (02:52→19:41)
[2023-03-20] MEDS: LORAZEPAM 0.5 MG TABLET PO PRN ×2 (02:52→12:17)
[2023-03-20] MEDS: PANTOPRAZOLE SODIUM 40 MG TABLET.DR PO SCH (06:06)
[2023-03-20] MEDS: BLOOD SUGAR DIAGNOSTIC 1 EACH STRIP VI SCH ×4 (07:33→20:35)
[2023-03-20 07:50] VITALS: BP 144/57; TEMP 98.6; O2SAT 98
[2023-03-20] MEDS: DOCUSATE SODIUM 250 MG CAPSULE PO SCH (08:22)
[2023-03-20] MEDS: ASPIRIN 81 MG TAB.CHEW PO SCH (08:22)
[2023-03-20] MEDS: CHOLECALCIFEROL 1,000 UNIT TABLET PO SCH (08:22)
[2023-03-20] MEDS: ASCORBIC ACID 500 MG TABLET PO SCH (08:22)
[2023-03-20] MEDS: ZINC SULFATE 220 MG CAPSULE PO SCH (08:23)
[2023-03-20] MEDS ORDERED: GABAPENTIN 100 MG CAPSULE PO SCH (09:00)
[2023-03-20] MEDS ORDERED: GABAPENTIN 300 MG CAPSULE PO SCH (09:00)
[2023-03-20] MEDS ORDERED: CLOTRIMAZOLE 1% CREAM 30 GM TUBE TP SCH (09:00)
[2023-03-20] MEDS: FOLIC ACID/VITAMIN B COMP W-C TABLET PO SCH (09:31)
[2023-03-20] MEDS: INSULIN REGULAR, HUMAN 300 UNIT/3 ML VIAL SQ PRN ×3 (09:33→16:40)
[2023-03-20] MEDS: DULOXETINE 30 MG CAPSULE.DR PO SCH (12:53)
[2023-03-20] MEDS ORDERED: DOXY-226 PO (14:42)
[2023-03-20] MEDS: LINAGLIPTIN 5 MG TABLET PO SCH (15:39)
[2023-03-20] MEDS: GABAPENTIN 100 MG CAPSULE PO SCH (16:08)
[2023-03-20 16:35] VITALS: BP 117/70; TEMP 98; O2SAT 97
[2023-03-20] MEDS: CLOTRIMAZOLE 1% CREAM 30 GM TUBE TP SCH (16:39)
[2023-03-20 20:00] VITALS: BP 130/51; TEMP 97.4; O2SAT 100
[2023-03-20] MEDS: SENNOSIDES 1 TABLET PO SCH (20:36)
[2023-03-20] MEDS: AMLODIPINE 2.5 MG TABLET PO SCH (20:41)
[2023-03-21] MEDS: TRAMADOL HCL 50 MG TABLET PO PRN ×2 (05:19→21:00)
[2023-03-21] MEDS: BLOOD SUGAR DIAGNOSTIC 1 EACH STRIP VI SCH ×4 (06:36→21:02)
[2023-03-21] MEDS: PANTOPRAZOLE SODIUM 40 MG TABLET.DR PO SCH (06:36)
[2023-03-21 07:30] VITALS: BP 90/65; TEMP 98.2; O2SAT 100
[2023-03-21 08:05] LABS: BASOPHILS % (AUTO) 0.6 % (0.0-2.0); EOSINOPHILS # (AUTO) 0.1 K/uL (0.0-0.7); EOSINOPHILS % (AUTO) 2.5 % (0.0-7.0); HEMATOCRIT 36.5 % (31.2-41.9); HEMOGLOBIN 12.1 g/dL (10.9-14.3); LYMPHOCYTES # (AUTO) 1.1 K/uL (0.8-4.8); LYMPHOCYTES % (AUTO) 21.3 % (20.5-51.5); MEAN CORPUSCULAR HEMOGLOBIN 28.3 uug (24.7-32.8); MEAN CORPUSCULAR HGB CONC 33 g/dL (32.3-35.6); MEAN CORPUSCULAR VOLUME 85.5 fL (75.5-95.3); MONOCYTES # (AUTO) 0.3 K/uL (0.1-1.30); MONOCYTES % (AUTO) 5.6 % (0.0-11.0); NEUTROPHILS # (AUTO) 3.7 K/uL (1.8-8.9); PLATELET COUNT (AUTO) 236 K/uL (179-408); RED BLOOD CELL COUNT(AUTO) 4.27 MIL/uL (3.63-4.92); RED CELL DISTRIBUTION WIDTH 17.4 % (12.3-17.7); WHITE BLOOD COUNT (AUTO) 5.3 K/uL (3.8-11.8)
[2023-03-21 08:07] LABS: DIFFERENTIAL COMMENT 1
[2023-03-21] MEDS: LINAGLIPTIN 5 MG TABLET PO SCH (08:16)
[2023-03-21] MEDS: LORAZEPAM 0.5 MG TABLET PO PRN ×2 (08:17→16:06)
[2023-03-21] MEDS: ZINC SULFATE 220 MG CAPSULE PO SCH (08:17)
[2023-03-21] MEDS: ASCORBIC ACID 500 MG TABLET PO SCH (08:17)
[2023-03-21] MEDS: DOCUSATE SODIUM 250 MG CAPSULE PO SCH (08:17)
[2023-03-21] MEDS: ASPIRIN 81 MG TAB.CHEW PO SCH (08:17)
[2023-03-21] MEDS: CHOLECALCIFEROL 1,000 UNIT TABLET PO SCH (08:17)
[2023-03-21] MEDS: GABAPENTIN 100 MG CAPSULE PO SCH (08:17)
[2023-03-21] MEDS: FOLIC ACID/VITAMIN B COMP W-C TABLET PO SCH (08:18)
[2023-03-21] MEDS: CLOTRIMAZOLE 1% CREAM 30 GM TUBE TP SCH ×2 (08:20→17:05)
[2023-03-21 08:42] LABS: ALANINE AMINOTRANSFERASE 13 U/L (14-59); ALBUMIN 3.5 g/dL (3.4-5.0); ALKALINE PHOSPHATASE 92 U/L (50-136); ASPARTATE AMINOTRANSFERASE 18 U/L (15-37); BILIRUBIN,TOTAL 0.9 mg/dL (0.2-1.0); CALCIUM 9.1 mg/dL (8.5-10.1); CARBON DIOXIDE 28 mmol/L (21-32); CHLORIDE 104 mmol/L (98-107); CREATININE 1.8 mg/dL (0.6-1.3); GLUCOSE 185 mg/dL (74-106); PHOSPHOROUS 3.8 mg/dL (2.5-4.9); POTASSIUM 4.6 mmol/L (3.5-5.1); SODIUM SERUM 140 mmol/L (136-145); TOTAL PROTEIN, SERUM 7.3 g/dL (6.4-8.2); UREA NITROGEN, BLOOD 35 mg/dL (7-18)
[2023-03-21] MEDS: INSULIN REGULAR, HUMAN 300 UNIT/3 ML VIAL SQ PRN (11:38)
[2023-03-21 12:42] LABS: THYROID STIMULATING HORMONE 2.529 mIU/mL (0.358-3.740)
[2023-03-21] MEDS: GABAPENTIN 300 MG CAPSULE PO SCH ×2 (12:59→16:06)
[2023-03-21] MEDS: DULOXETINE 30 MG CAPSULE.DR PO SCH (12:59)
[2023-03-21 15:32] VITALS: BP 140/68; TEMP 98.2; O2SAT 100
[2023-03-21] MEDS: MAG HYDROX/AL HYDROX/SIMETH 30 ML LIQUID UDC PO PRN (16:00)
[2023-03-21] MEDS: ACETAMINOPHEN 325 MG TABLET PO PRN (17:04)
[2023-03-21 20:00] VITALS: BP 146/56; TEMP 97.7; O2SAT 97
[2023-03-21] MEDS: SENNOSIDES 1 TABLET PO SCH ×2 (20:47→21:00)
[2023-03-21] MEDS: AMLODIPINE 2.5 MG TABLET PO SCH (20:48)
[2023-03-22] MEDS: ACETAMINOPHEN 325 MG TABLET PO PRN ×2 (02:01→17:35)
[2023-03-22] MEDS: PANTOPRAZOLE SODIUM 40 MG TABLET.DR PO SCH (06:15)
[2023-03-22] MEDS: BLOOD SUGAR DIAGNOSTIC 1 EACH STRIP VI SCH ×4 (06:15→20:16)
[2023-03-22] MEDS: LORAZEPAM 0.5 MG TABLET PO PRN ×2 (07:01→20:22)
[2023-03-22 07:30] VITALS: BP 151/48; TEMP 98.4; O2SAT 99
[2023-03-22] MEDS: FOLIC ACID/VITAMIN B COMP W-C TABLET PO SCH (08:58)
[2023-03-22] MEDS: DOCUSATE SODIUM 250 MG CAPSULE PO SCH (08:58)
[2023-03-22] MEDS: ASCORBIC ACID 500 MG TABLET PO SCH (08:58)
[2023-03-22] MEDS: LINAGLIPTIN 5 MG TABLET PO SCH (08:58)
[2023-03-22] MEDS: CHOLECALCIFEROL 1,000 UNIT TABLET PO SCH (08:59)
[2023-03-22] MEDS: ZINC SULFATE 220 MG CAPSULE PO SCH (08:59)
[2023-03-22] MEDS: GABAPENTIN 300 MG CAPSULE PO SCH ×3 (08:59→17:35)
[2023-03-22] MEDS: ASPIRIN 81 MG TAB.CHEW PO SCH (08:59)
[2023-03-22] MEDS: CLOTRIMAZOLE 1% CREAM 30 GM TUBE TP SCH ×2 (09:00→17:37)
[2023-03-22] MEDS: DULOXETINE 30 MG CAPSULE.DR PO SCH (13:30)
[2023-03-22] MEDS: INSULIN REGULAR, HUMAN 300 UNIT/3 ML VIAL SQ PRN ×2 (13:32→17:34)
[2023-03-22 15:34] VITALS: BP 123/56; TEMP 98; O2SAT 98
[2023-03-22 20:01] VITALS: BP 104/56; TEMP 98; O2SAT 97
[2023-03-22] MEDS: AMLODIPINE 2.5 MG TABLET PO SCH (20:16)
[2023-03-22] MEDS: SENNOSIDES 1 TABLET PO SCH (20:16)
[2023-03-23] MEDS: TRAMADOL HCL 50 MG TABLET PO PRN ×2 (02:25→20:33)
[2023-03-23] MEDS: BLOOD SUGAR DIAGNOSTIC 1 EACH STRIP VI SCH ×4 (06:50→20:19)
[2023-03-23] MEDS: PANTOPRAZOLE SODIUM 40 MG TABLET.DR PO SCH (06:50)
[2023-03-23] MEDS: ACETAMINOPHEN 325 MG TABLET PO PRN ×2 (06:50→16:22)
[2023-03-23 08:11] VITALS: BP 156/72; TEMP 98; O2SAT 100
[2023-03-23] MEDS: ASCORBIC ACID 500 MG TABLET PO SCH (08:52)
[2023-03-23] MEDS: LINAGLIPTIN 5 MG TABLET PO SCH (08:52)
[2023-03-23] MEDS: CHOLECALCIFEROL 1,000 UNIT TABLET PO SCH (08:52)
[2023-03-23] MEDS: GABAPENTIN 300 MG CAPSULE PO SCH ×3 (08:52→16:33)
[2023-03-23] MEDS: ZINC SULFATE 220 MG CAPSULE PO SCH (08:52)
[2023-03-23] MEDS: ASPIRIN 81 MG TAB.CHEW PO SCH (08:52)
[2023-03-23] MEDS: DOCUSATE SODIUM 250 MG CAPSULE PO SCH (09:00)
[2023-03-23] MEDS: CLOTRIMAZOLE 1% CREAM 30 GM TUBE TP SCH ×2 (09:02→16:34)
[2023-03-23] MEDS ORDERED: DULOXETINE 30 MG CAPSULE.DR PO SCH ×2 (11:15→17:00)
[2023-03-23] MEDS: DULOXETINE 60 MG CAPSULE.DR PO SCH (11:20)
[2023-03-23] MEDS: FOLIC ACID/VITAMIN B COMP W-C TABLET PO SCH (11:20)
[2023-03-23] MEDS: INSULIN REGULAR, HUMAN 300 UNIT/3 ML VIAL SQ PRN ×2 (12:25→20:29)
[2023-03-23 15:07] VITALS: BP 117/45; TEMP 98; O2SAT 98
[2023-03-23 20:03] VITALS: BP 126/52; TEMP 97.9; O2SAT 99
[2023-03-23] MEDS: SENNOSIDES 1 TABLET PO SCH (20:27)
[2023-03-23] MEDS: AMLODIPINE 2.5 MG TABLET PO SCH (20:27)
[2023-03-24] MEDS: PANTOPRAZOLE SODIUM 40 MG TABLET.DR PO SCH (06:16)
[2023-03-24] MEDS: BLOOD SUGAR DIAGNOSTIC 1 EACH STRIP VI SCH ×4 (06:25→20:15)
[2023-03-24 08:03] VITALS: BP 139/63; TEMP 98; O2SAT 99
[2023-03-24] MEDS: GABAPENTIN 300 MG CAPSULE PO SCH ×3 (08:50→17:53)
[2023-03-24] MEDS: FOLIC ACID/VITAMIN B COMP W-C TABLET PO SCH (08:50)
[2023-03-24] MEDS: CHOLECALCIFEROL 1,000 UNIT TABLET PO SCH (08:50)
[2023-03-24] MEDS: LINAGLIPTIN 5 MG TABLET PO SCH (08:50)
[2023-03-24] MEDS: ZINC SULFATE 220 MG CAPSULE PO SCH (08:50)
[2023-03-24] MEDS: DULOXETINE 60 MG CAPSULE.DR PO SCH (08:50)
[2023-03-24] MEDS: CLOTRIMAZOLE 1% CREAM 30 GM TUBE TP SCH ×2 (08:51→17:53)
[2023-03-24] MEDS: ASCORBIC ACID 500 MG TABLET PO SCH (09:04)
[2023-03-24] MEDS: ASPIRIN 81 MG TAB.CHEW PO SCH (09:06)
[2023-03-24] MEDS: DOCUSATE SODIUM 250 MG CAPSULE PO SCH (09:07)
[2023-03-24] MEDS: INSULIN REGULAR, HUMAN 300 UNIT/3 ML VIAL SQ PRN (12:39)
[2023-03-24] MEDS: MAG HYDROX/AL HYDROX/SIMETH 30 ML LIQUID UDC PO PRN (14:20)
[2023-03-24] MEDS: TRAMADOL HCL 50 MG TABLET PO PRN (14:20)
[2023-03-24 15:25] VITALS: BP 116/50; TEMP 98; O2SAT 99
[2023-03-24] MEDS ORDERED: GLUCAGON,HUMAN RECOMBINANT 1 MG VIAL IVP ONE (19:00)
[2023-03-24 19:52] VITALS: BP 128/58; TEMP 97.9; O2SAT 99
[2023-03-24] MEDS: AMLODIPINE 2.5 MG TABLET PO SCH (20:18)
[2023-03-24] MEDS: SENNOSIDES 1 TABLET PO SCH (20:18)
[2023-03-24] MEDS ORDERED: ONDANSETRON ODT 4 MG TAB.RAPDIS SL PRN (20:30)
[2023-03-24] MEDS: ACETAMINOPHEN 325 MG TABLET PO PRN (22:26)
[2023-03-25] MEDS: BLOOD SUGAR DIAGNOSTIC 1 EACH STRIP VI SCH ×4 (06:17→21:07)
[2023-03-25] MEDS: PANTOPRAZOLE SODIUM 40 MG TABLET.DR PO SCH (06:20)
[2023-03-25] MEDS: TRAMADOL HCL 50 MG TABLET PO PRN (06:40)
[2023-03-25 08:03] VITALS: BP 122/53; TEMP 98.7; O2SAT 98
[2023-03-25] MEDS: GABAPENTIN 300 MG CAPSULE PO SCH ×3 (09:13→16:38)
[2023-03-25] MEDS: DULOXETINE 60 MG CAPSULE.DR PO SCH (09:13)
[2023-03-25] MEDS: ZINC SULFATE 220 MG CAPSULE PO SCH (09:13)
[2023-03-25] MEDS: ASPIRIN 81 MG TAB.CHEW PO SCH (09:13)
[2023-03-25] MEDS: CHOLECALCIFEROL 1,000 UNIT TABLET PO SCH (09:13)
[2023-03-25] MEDS: ASCORBIC ACID 500 MG TABLET PO SCH (09:13)
[2023-03-25] MEDS: DOCUSATE SODIUM 250 MG CAPSULE PO SCH (09:13)
[2023-03-25 09:14] LABS: BASOPHILS % (AUTO) 0.6 % (0.0-2.0); EOSINOPHILS # (AUTO) 0.2 K/uL (0.0-0.7); EOSINOPHILS % (AUTO) 2.6 % (0.0-7.0); HEMATOCRIT 32.8 % (31.2-41.9); HEMOGLOBIN 10.7 g/dL (10.9-14.3); LYMPHOCYTES # (AUTO) 1.7 K/uL (0.8-4.8); LYMPHOCYTES % (AUTO) 29.5 % (20.5-51.5); MEAN CORPUSCULAR HEMOGLOBIN 28.4 uug (24.7-32.8); MEAN CORPUSCULAR HGB CONC 33 g/dL (32.3-35.6); MEAN CORPUSCULAR VOLUME 86.8 fL (75.5-95.3); MONOCYTES # (AUTO) 0.5 K/uL (0.1-1.30); MONOCYTES % (AUTO) 9.4 % (0.0-11.0); NEUTROPHILS # (AUTO) 3.3 K/uL (1.8-8.9); NEUTROPHILS % (AUTO) 57.9 % (38.5-71.5); PLATELET COUNT (AUTO) 209 K/uL (179-408); RED BLOOD CELL COUNT(AUTO) 3.78 MIL/uL (3.63-4.92); WHITE BLOOD COUNT (AUTO) 5.8 K/uL (3.8-11.8)
[2023-03-25] MEDS: FOLIC ACID/VITAMIN B COMP W-C TABLET PO SCH (09:14)
[2023-03-25] MEDS: CLOTRIMAZOLE 1% CREAM 30 GM TUBE TP SCH ×2 (09:14→16:38)
[2023-03-25] MEDS: INSULIN REGULAR, HUMAN 300 UNIT/3 ML VIAL SQ PRN ×2 (09:14→16:40)
[2023-03-25 09:20] LABS: DIFFERENTIAL COMMENT 1
[2023-03-25 09:25] LABS: CALCIUM 8.9 mg/dL (8.5-10.1); CARBON DIOXIDE 27 mmol/L (21-32); CHLORIDE 106 mmol/L (98-107); GLUCOSE 174 mg/dL (74-106); POTASSIUM 5.2 mmol/L (3.5-5.1); SODIUM SERUM 140 mmol/L (136-145); UREA NITROGEN, BLOOD 40 mg/dL (7-18)
[2023-03-25] MEDS: ACETAMINOPHEN 325 MG TABLET PO PRN (13:45)
[2023-03-25] MEDS: LORAZEPAM 0.5 MG TABLET PO PRN (13:46)
[2023-03-25 16:08] VITALS: BP 118/50; TEMP 98.1; O2SAT 98
[2023-03-25 20:00] VITALS: BP 108/60; TEMP 97.4; O2SAT 98
[2023-03-25] MEDS: SENNOSIDES 1 TABLET PO SCH (20:28)
[2023-03-25] MEDS: AMLODIPINE 2.5 MG TABLET PO SCH (20:28)
[2023-03-25] MEDS: TEMAZEPAM 7.5 MG CAPSULE PO PRN (23:14)
[2023-03-26] MEDS: PANTOPRAZOLE SODIUM 40 MG TABLET.DR PO SCH (06:03)
[2023-03-26] MEDS: BLOOD SUGAR DIAGNOSTIC 1 EACH STRIP VI SCH ×4 (06:55→20:04)
[2023-03-26 08:12] VITALS: BP 137/68; TEMP 98.7; O2SAT 98
[2023-03-26] MEDS: FOLIC ACID/VITAMIN B COMP W-C TABLET PO SCH (08:35)
[2023-03-26] MEDS: DULOXETINE 60 MG CAPSULE.DR PO SCH (08:35)
[2023-03-26] MEDS: ZINC SULFATE 220 MG CAPSULE PO SCH (08:35)
[2023-03-26] MEDS: ASCORBIC ACID 500 MG TABLET PO SCH (08:35)
[2023-03-26] MEDS: ASPIRIN 81 MG TAB.CHEW PO SCH (08:35)
[2023-03-26] MEDS: GABAPENTIN 300 MG CAPSULE PO SCH ×3 (08:35→16:39)
[2023-03-26] MEDS: CHOLECALCIFEROL 1,000 UNIT TABLET PO SCH (08:35)
[2023-03-26] MEDS: DOCUSATE SODIUM 250 MG CAPSULE PO SCH (08:36)
[2023-03-26] MEDS: CLOTRIMAZOLE 1% CREAM 30 GM TUBE TP SCH ×2 (08:42→16:42)
[2023-03-26] MEDS: TRAMADOL HCL 50 MG TABLET PO PRN ×2 (08:55→20:29)
[2023-03-26] MEDS ORDERED: SODIUM POLYSTYRENE SULFONATE 15 G/60 ML LIQUID UDC PO ONE (11:00)
[2023-03-26] MEDS: LORAZEPAM 0.5 MG TABLET PO PRN (11:18)
[2023-03-26 16:02] LABS: *BILIRUBIN,URIN NEGATIVE (NEGATIVE); *BLOOD, URINE 1+ (NEGATIVE); *CLARITY,URINE CLEAR (CLEAR); *COLOR,URINE YELLOW (YELLOW); *KETONES,URINE NEGATIVE (NEGATIVE); *UROBILINOGEN,URINE 0.2 E.U./dl (NORMAL); LEUKOCYTE ESTERASE ,URINE NEGATIVE (NEGATIVE); NITRITE, URINE NEGATIVE (NEGATIVE); UGLUCOSE NEGATIVE (NEGATIVE)
[2023-03-26 16:03] LABS: *PROTEIN,URINE 3+ (NEGATIVE)
[2023-03-26 16:21] LABS: BACTERIA,URINE FEW /HPF (NONE SEEN); SQUAMOUS EPITHELIAL CELL,UR FEW /HPF (NONE SEEN); WBC,URINE 0-3 /HPF (0-3)
[2023-03-26] MEDS: ACETAMINOPHEN 325 MG TABLET PO PRN (16:39)
[2023-03-26] MEDS: INSULIN REGULAR, HUMAN 300 UNIT/3 ML VIAL SQ PRN ×2 (16:41→20:34)
[2023-03-26 16:52] VITALS: BP 139/88; TEMP 98.1; O2SAT 97
[2023-03-26 20:00] VITALS: BP 123/81; TEMP 98.4; O2SAT 99
[2023-03-26] MEDS: AMLODIPINE 2.5 MG TABLET PO SCH (20:07)
[2023-03-26] MEDS: SENNOSIDES 1 TABLET PO SCH (20:08)
[2023-03-27] MEDS: PANTOPRAZOLE SODIUM 40 MG TABLET.DR PO SCH (06:12)
[2023-03-27] MEDS: BLOOD SUGAR DIAGNOSTIC 1 EACH STRIP VI SCH ×2 (07:28→12:43)
[2023-03-27 08:02] VITALS: BP 154/50; TEMP 98.4; O2SAT 98
[2023-03-27] MEDS: ASPIRIN 81 MG TAB.CHEW PO SCH (08:30)
[2023-03-27] MEDS: DULOXETINE 60 MG CAPSULE.DR PO SCH (08:30)
[2023-03-27] MEDS: ASCORBIC ACID 500 MG TABLET PO SCH (08:30)
[2023-03-27] MEDS: GABAPENTIN 300 MG CAPSULE PO SCH ×2 (08:30→12:43)
[2023-03-27] MEDS: DOCUSATE SODIUM 250 MG CAPSULE PO SCH (08:30)
[2023-03-27] MEDS: ZINC SULFATE 220 MG CAPSULE PO SCH (08:30)
[2023-03-27] MEDS: FOLIC ACID/VITAMIN B COMP W-C TABLET PO SCH (08:30)
[2023-03-27] MEDS: CHOLECALCIFEROL 1,000 UNIT TABLET PO SCH (08:31)
[2023-03-27] MEDS: CLOTRIMAZOLE 1% CREAM 30 GM TUBE TP SCH (08:31)
[2023-03-27 12:28] VITALS: BP 141/65; O2SAT 98
[2023-03-27] MEDS: INSULIN REGULAR, HUMAN 300 UNIT/3 ML VIAL SQ PRN (12:44)
[2023-03-27] MEDS: LORAZEPAM 0.5 MG TABLET PO PRN (14:12)
[2023-03-27 15:10] VITALS: BP 138/78; TEMP 98; O2SAT 100
== END 2023-03-27 16:15 | DRG 885 ==
LOC: ER 19:46 → GPS 20:07
PROVIDERS: ADMIT Psychiatry & Neurology Psychosomatic Medicine; ATTEND Student in an Organized Health Care Education/Training Program
DX: F33.2 Major depressive disorder, recurrent severe without psychotic features (principal); N17.0 Acute kidney failure with tubular necrosis; N18.4 Chronic kidney disease, stage 4 (severe); R45.851 Suicidal ideations; E44.1 Mild protein-calorie malnutrition; D68.69 Other thrombophilia; Z68.41 Body mass index [BMI] 40.0-44.9, adult; I50.32 Chronic diastolic (congestive) heart failure; N39.0 Urinary tract infection, site not specified; I13.0 Hypertensive heart and chronic kidney disease with heart failure and stage 1 through stage 4 chronic kidney disease, or unspecified chronic kidney disease; Z20.822 Contact with and (suspected) exposure to COVID-19; D64.9 Anemia, unspecified; D69.6 Thrombocytopenia, unspecified; E78.5 Hyperlipidemia, unspecified; F41.9 Anxiety disorder, unspecified; G62.9 Polyneuropathy, unspecified; G89.4 Chronic pain syndrome; I48.0 Paroxysmal atrial fibrillation; I27.20 Pulmonary hypertension, unspecified; K21.9 Gastro-esophageal reflux disease without esophagitis; Z79.4 Long term (current) use of insulin; Z79.84 Long term (current) use of oral hypoglycemic drugs; Z79.899 Other long term (current) drug therapy; Z87.440 Personal history of urinary (tract) infections; Z95.0 Presence of cardiac pacemaker; F43.10 Post-traumatic stress disorder, unspecified; F39 Unspecified mood [affective] disorder; M19.90 Unspecified osteoarthritis, unspecified site; E11.22 Type 2 diabetes mellitus with diabetic chronic kidney disease; E66.01 Morbid (severe) obesity due to excess calories
CPT/HCPCS: 36415; 71045; 83735; 84100; 84443; 85025; 85730; 93005; 93307; A4606; A4663; G0480; J1815; Q0162